=== PATIENT | female | born 1970 | race Caucasian/White ===

== ENCOUNTER → 2019-05-09 | Outpatient (CLI) | payer OTHER ==
[~2019-05-09] MED LIST: ACETAMINOPHEN325 M1 PO; ADULT LOW DOSE81 MG PO; ADVAIR 250-501 EACH IH; ALBUTEROL INH INH; ALBUTEROL SUL5 MG/M1 IH; ALBUTEROL2.5 MG/0.1 IH; AMBIEN 10 MG TA10 MG; APIDRA100 U/ML; ATIVAN0.5 MG PO; CIPROFLOXACIN500 M1 PO; CLEOCIN HCL150 MG PO; CLIMARA PRO PA1 EACH TD; CRANBERRY CONC500 MG PO; DETROL LA4 MG PO; DOXYCYCLINE HYC20 MG; FLEXERIL PO; GABAPENTIN 100100 MG PO; HYDROCODONE-APA10 ML PO; IBUPROFEN 800800 M1 PO; KEFLEX500 MG PO; LAMICTAL150 MG PO; LANTUS SC; LEVEMIR; LEVEMIR SC; LINZESS145 MCG PO; LISINOPRIL10 MG; LOPRESSOR PO; MULTIVITAMIN PO; NOVOLOG100 UNIT/1; NOVOLOG100 UNIT/1 SQ; PANTOPRAZOLE SO40 M1; PHENERGAN 25 MG25 M1 PO; PHENTERMINE HCL15 MG; PREDNISONE 10 M10 MG; PREDNISONE50 MG PO; PRISTIQ100 MG PO; PROAIR HFA8.5 GM IH; PROMETHAZINE/C118 ML PO; PROTONIX40 M1 PO; PROZAC 20 MG20 M1 PO; ROBAXIN 750 MG750 M1; TOPROL XL100 MG PO; TRAMADOL 50 MG50 MG PO; VICODIN 5-5001 EACH PO; VITAMIN D PO; VITAMINC500 PO; ZOCOR 20 MG TAB20 M1 PO; ZPAK PO; ZYRTEC10 M2 PO; [UNRECOGNIZED DRUG - OTHER] PO
== END ==
LOC: M.RAD 12:50
DX: Z12.31 Encounter for screening mammogram for malignant neoplasm of breast (principal)

== ENCOUNTER 2021-03-27 12:17 | Inpatient (IN) | payer OTHER ==
[~2021-03-27] VITALS: Ht 167.6 cm; Wt 83.7 kg
[2021-03-27 12:56] VITALS: BP 187/97
[2021-03-27] MEDS ORDERED: MAGNESIUM PO (13:04)
[2021-03-27 15:10] LABS: URINE BILIRUBIN NEGATIVE (Negative); URINE BLOOD 1+ (Negative); URINE COLOR YELLOW; URINE GLUCOSE-RANDOM 3+ (Negative); URINE LEUKOCYTES-REFLEX NEGATIVE (Negative); URINE NITRITE-REFLEX NEGATIVE (Negative); URINE PROTEIN 2+ (Negative); URINE SPECIFIC GRAVITY 1.015 (1.005-1.030); URINE UROBILINOGEN 0.2 E.U./dl (0.2-1.0)
[2021-03-27 15:13] LABS: URINE CLARITY HAZY; URINE KETONES 3+ (Negative)
[2021-03-27 15:25] LABS: BACTERIA-REFLEX 1-9 Few /HPF (None Seen); CASTS None Seen /LPF (None Seen); CRYSTALS None Seen /LPF (None Seen); SQUAMOUS >10 Many /LPF (0-3); URINE RBC 0-2 Rare /HPF (0-2); URINE WBC-REFLEX 0-5 Rare /HPF (0-5)
[2021-03-27 15:25] LABS: ABSOLUTE BASOPHILS 0.1 thou/uL (0.0-0.2); ABSOLUTE EOSINOPHILS 0.2 thou/uL (0.0-0.7); ABSOLUTE LYMPHOCYTES 2.5 thou/uL (0.8-5.3); ABSOLUTE MONOCYTES 0.6 thou/uL (0.0-1.2); BASOPHILS 0.8 %; EOSINOPHILS 1.8 %; HEMATOCRIT 43.5 % (37.0-47.0); HEMOGLOBIN 14.5 gm/dL (12.0-15.0); LYMPHOCYTES 21.9 %; MCHC 33.5 g/dL (28.0-37.0); MCV 89.6 fL (80.0-100.0); MONOCYTES 5.7 %; NUCLEATED RBCS 0 /100WBC; PLATELET COUNT* 266 thou/uL (150-400); POLYS 69.8 %; RBC 4.85 mil/uL (4.20-5.00); RDW-CV 12.7 % (10.5-14.5); WBC 11.4 thou/uL (4.0-11.0)
[2021-03-27 15:44] LABS: CALCIUM 9.3 mg/dL (8.5-10.1); POTASSIUM 4.1 mmol/L (3.5-5.1); TOTAL BILIRUBIN 0.4 mg/dL (<0.1-1.0); TOTAL PROTEIN 8.1 g/dL (6.4-8.2)
[2021-03-27 20:50] VITALS: BP 139/63
[2021-03-28 01:00] VITALS: BP 122/59
[2021-03-28 04:09] VITALS: BP 141/67
[2021-03-28 07:37] LABS: ABSOLUTE EOSINOPHILS 0.2 thou/uL (0.0-0.7); ABSOLUTE LYMPHOCYTES 1.7 thou/uL (0.8-5.3); ABSOLUTE MONOCYTES 0.4 thou/uL (0.0-1.2); ABSOLUTE NEUTROPHILS 5.1 thou/uL (1.6-8.1); BASOPHILS 0.6 %; EOSINOPHILS 2.9 %; HEMATOCRIT 37.5 % (37.0-47.0); HEMOGLOBIN 12.7 gm/dL (12.0-15.0); LYMPHOCYTES 22.5 %; MCH 29.6 pg (26.0-34.0); MCHC 33.8 g/dL (28.0-37.0); MCV 87.5 fL (80.0-100.0); MONOCYTES 5.3 %; MPV 8.1 fl. (7.2-11.1); NUCLEATED RBCS 0 /100WBC; PLATELET COUNT* 220 thou/uL (150-400); POLYS 68.7 %; RBC 4.29 mil/uL (4.20-5.00); RDW-CV 13.1 % (10.5-14.5); WBC 7.5 thou/uL (4.0-11.0)
[2021-03-28 07:41] LABS: CALCIUM 8.1 mg/dL (8.5-10.1); CREATININE 0.9 mg/dL (0.6-1.3); POTASSIUM 4.2 mmol/L (3.5-5.1)
[2021-03-28 09:23] VITALS: BP 121/80
[2021-03-28 09:57] VITALS: BP 125/81
[2021-03-28] MEDS ORDERED: SENOKOT8.6 MG PO (11:56)
[2021-03-28] MEDS ORDERED: LIPITOR 20 MG T20 M1 PO (11:57)
[2021-03-28] MEDS ORDERED: LAMICTAL100 MG PO (11:58)
[2021-03-28] MEDS ORDERED: MAGNESIUM400 MG PO (12:00)
[2021-03-28] MEDS ORDERED: APIDRA SUBQ (12:01)
[2021-03-28] MEDS ORDERED: TRESIBA100 UNIT/1 SUBQ (12:02)
[2021-03-28] MEDS ORDERED: FLEXERIL PO (12:03)
[2021-03-28] MEDS ORDERED: XANAX 0.5 MG0.5 M1 PO (12:10)
[2021-03-28] MEDS ORDERED: V-GO 401 EACH (12:11)
[2021-03-28 16:00] VITALS: BP 138/59
[2021-03-28 20:00] VITALS: BP 138/82
[2021-03-29 00:51] VITALS: BP 122/70
[2021-03-29 04:00] VITALS: BP 102/62
[2021-03-29 08:34] VITALS: BP 137/78
[2021-03-29] MEDS ORDERED: AUGMENTIN 875-1 EACH PO (11:37)
[2021-03-29] MEDS ORDERED: HYDROCODON-ACE1 EAC7 PO (11:37)
[2021-03-29] MEDS ORDERED: CIPRO500 M1 PO (11:37)
[2021-03-29] MEDS ORDERED: LANTUS100 UNIT/M SUBQ (11:37)
[2021-03-29] MEDS ORDERED: DIFLUCAN150 M1 PO (11:38)
[2021-03-29] MEDS ORDERED: ZOFRAN ODT4 MG PO (11:38)
[2021-03-29 14:43] VITALS: BP 137/78
== END 2021-03-29 15:45 | disposition home or self-care (01) | DRG 602 ==
LOC: M.ERS 12:17 → M.ORTHSURG 15:50 → M.TBA-ER 15:50 → M.ORTHSURG 03-28 09:44
PROVIDERS: Physician Assistant; Surgery; ADMIT Internal Medicine; ATTEND Internal Medicine
PROC: 0J990ZZ Drainage of Buttock Subcutaneous Tissue and Fascia, Open Approach (ICD-10-PCS; principal; 2021-03-27)
DX: L02.31 Cutaneous abscess of buttock (principal); E11.00 Type 2 diabetes mellitus with hyperosmolarity without nonketotic hyperglycemic-hyperosmolar coma (NKHHC); L03.317 Cellulitis of buttock; N76.0 Acute vaginitis; J45.909 Unspecified asthma, uncomplicated; K59.00 Constipation, unspecified; E78.00 Pure hypercholesterolemia, unspecified; K21.9 Gastro-esophageal reflux disease without esophagitis; F32.9 Major depressive disorder, single episode, unspecified; F41.9 Anxiety disorder, unspecified; E11.40 Type 2 diabetes mellitus with diabetic neuropathy, unspecified; E11.65 Type 2 diabetes mellitus with hyperglycemia; L73.2 Hidradenitis suppurativa; D72.829 Elevated white blood cell count, unspecified; F17.210 Nicotine dependence, cigarettes, uncomplicated; Z20.822 Contact with and (suspected) exposure to COVID-19; Z90.710 Acquired absence of both cervix and uterus; Z88.8 Allergy status to other drugs, medicaments and biological substances; Z82.49 Family history of ischemic heart disease and other diseases of the circulatory system